=== PATIENT | female | born 1935 | race Caucasian/White ===

== ENCOUNTER → 2017-12-13 | Outpatient (CLI) | payer MEDICARE, BC ==
[~2017-12-13] MED LIST: ASPIR 8181 MG PO; ASPIRIN E.C. 8181 MG PO; CALCIUM 600/VIT1 CAP PO; CALCIUM CARBONA1 TA8 PO; CALCIUM CITRAT200 MG PO; CENTRUM SILVER1 TA1 PO; CITRACAL PLUS1 TAB PO; CO Q-1050 MG PO; COUMADIN 3MG3 MG/TAB PO; COUMADIN 5MG5 MG/TAB PO; COUMADIN 6MG6 MG/TAB PO; COUMADIN4 MG PO; CRANBERRY FRUI425 MG PO; CUBICIN 500MG500 MG IV; CYMBALTA 30MG30 MG PO; CYMBALTA 60MG60 MG PO; Detrol LA; ESTRACE0.1 MG/GM VG; FENTANYL 12MCG TOP; FISH OIL CONC1000 MG PO; FISH OIL1 IU PO; GLUCOPHAGE XR500 M1 PO; GLUCOPHAGE1000 MG PO; GLUCOSAMINE CHO1 CA1 PO; HEPARIN LOCK FLU5 M1 IV; KLONOPIN 0.5MG0.5 MG PO; LASIX 20MG TABL20 MG PO; LESCOL; LEXAPRO20 MG PO; LIDODERM PATCH TP; LIPITOR 40MG TA40 MG PO; LIQUID MAGNESI400 MG PO; LOPRESSOR 225 MG/TAB PO; LOVENOX 4040 MG/0.4 SQ; LOVENOX 8080 MG/0.8 SQ; MAG-OX 400400 MG/TAB PO; MULTI VITAMINS1 TAB PO; MVI; NEURONTIN100 MG/CAP PO; NITROSTAT0.4 MG/TAB SL; NORCO 325 MG-7.1 TAB PO; NOVLOG SQ; NS INT FLUSH 1010 ML IV; ONE DAILY1 TA1 PO; OSTEO BI-FLEX; OXECTA5 MG PO; PLAVIX 75MG TAB75 MG PO; PREDINSONE; PREDNISONE 5MG5 MG PO; PREDNISONE1 MG PO; PREDNISONE2.5 MG PO; PRILOSEC 20MG20 MG PO; QUESTRAN4 GM/9 GM PO; REMERON 15M15 MG/TA1 PO; REMERON SOLTAB15 MG PO; RITE AID KRILL500 MG PO; ROXICODONE 55 MG/TAB PO; SENNA8.6 MG PO; SENOKOT S 50 MG1 TAB PO; SUPER B COMPLEX1 TA2 PO; SUPER EPA 1201200 MG PO; THERAGRAN-M1 TA1 PO; TIGECYCLINE 50 MG IV; TRAMADOL50 MG PO; TYLENOL 325MG325 MG PO; TYLENOL 500MG500 MG PO; TYLENOL EXTRA500 M1 PO; URECHOLINE PO; VITAMIN B COMPL1 SGL PO; VITAMIN C BUFF500 MG PO; VITAMIN C500 MG PO; VITAMIN D 1001000 IU PO; VITAMIN D 400400 IU PO; WARFARIN; XALATAN EYE DROPS OU; XARELTO20 MG PO; ZESTRIL 5MG5 MG PO; ZOFRAN ODT4 MG PO; [UNRECOGNIZED DRUG - OTHER]
== END ==
LOC: MHCPAIN 14:00
DX: G89.29 Other chronic pain (principal); M47.817 Spondylosis without myelopathy or radiculopathy, lumbosacral region; M54.16 Radiculopathy, lumbar region; M53.3 Sacrococcygeal disorders, not elsewhere classified; M96.1 Postlaminectomy syndrome, not elsewhere classified
CPT/HCPCS: G0463

== ENCOUNTER → 2017-12-30 | Outpatient (CLI) | payer MEDICARE, BC | LOC: MHCPAIN 12:52 | DX: M47.817 Spondylosis without myelopathy or radiculopathy, lumbosacral region (principal); M96.1 Postlaminectomy syndrome, not elsewhere classified; M12.88 Other specific arthropathies, not elsewhere classified, other specified site ==

== ENCOUNTER → 2018-01-05 | Outpatient (CLI) | payer MEDICARE, BC | LOC: MHCPAIN 14:47 | DX: G89.29 Other chronic pain (principal); M47.817 Spondylosis without myelopathy or radiculopathy, lumbosacral region; M54.16 Radiculopathy, lumbar region; M53.3 Sacrococcygeal disorders, not elsewhere classified; M96.1 Postlaminectomy syndrome, not elsewhere classified | CPT/HCPCS: G0463 ==

== ENCOUNTER → 2018-01-20 | Outpatient (CLI) | payer MEDICARE, BC | LOC: MHCPAIN 12:22 | DX: M47.817 Spondylosis without myelopathy or radiculopathy, lumbosacral region (principal); M46.96 Unspecified inflammatory spondylopathy, lumbar region ==

== ENCOUNTER → 2018-01-26 | Outpatient (CLI) | payer MEDICARE, BC | LOC: MHCPAIN 12:38 | DX: G89.29 Other chronic pain (principal); M47.817 Spondylosis without myelopathy or radiculopathy, lumbosacral region; M54.16 Radiculopathy, lumbar region; M53.3 Sacrococcygeal disorders, not elsewhere classified; M96.1 Postlaminectomy syndrome, not elsewhere classified | CPT/HCPCS: G0463 ==

== ENCOUNTER → 2018-02-24 | Outpatient (CLI) | payer MEDICARE, BC | LOC: MHCPAIN 14:54 | DX: M47.817 Spondylosis without myelopathy or radiculopathy, lumbosacral region (principal) | CPT/HCPCS: J2250; J3010 ==

== ENCOUNTER → 2018-04-26 | Outpatient (CLI) | payer MEDICARE, BC | LOC: MHCPAIN 13:28 | DX: G89.29 Other chronic pain (principal); M47.817 Spondylosis without myelopathy or radiculopathy, lumbosacral region; M54.16 Radiculopathy, lumbar region; M53.3 Sacrococcygeal disorders, not elsewhere classified; M96.1 Postlaminectomy syndrome, not elsewhere classified | CPT/HCPCS: G0463 ==

== ENCOUNTER → 2018-06-08 | Outpatient (CLI) | payer MEDICARE, BC | LOC: MHCPAIN 13:34 | DX: G89.29 Other chronic pain (principal); M47.817 Spondylosis without myelopathy or radiculopathy, lumbosacral region; M54.16 Radiculopathy, lumbar region; M53.3 Sacrococcygeal disorders, not elsewhere classified; M96.1 Postlaminectomy syndrome, not elsewhere classified | CPT/HCPCS: G0463 ==

== ENCOUNTER 2018-06-17 21:42 | Inpatient (IN) | payer MEDICARE, BC ==
[~2018-06-17] VITALS: Ht 165.1 cm; Wt 78.1 kg
[2018-06-17 22:47] LABS: BASO % 0.2 % (0.0-2.0); EOS % 0.1 % (0-4.0); GRAN # 15.9 (1.4-6.5); HEMOGLOBIN 11.6 g/dl (12.5-16.0); LYMPH # 1.2 (1.2-3.4); LYMPH % 6.6 % (20.0-51.0); MEAN CELL VOLUME 91 fl (80.0-100.0); MEAN CORPUSCULAR HEMOGLOBIN 28 pg (27.0-31.0); MEAN CORPUSCULAR HGB CONC 31 g/dl (33.0-37.0); MEAN PLATELET VOLUME 10.5 fl (7.4-10.4); MONO # 0.8 (0.1-0.6); MONO % 4.4 % (1.7-9.3); PLATELET COUNT 149 K/mm3 (130-400); RED BLOOD COUNT 4.09 M/mm3 (4.10-5.30); REDCELL DISTRIBUTION WIDTH-CV 14.6 % (11.5-14.5)
[2018-06-17 22:55] LABS: INR 2.9 (0.8-3.0); PROTHROMBIN TIME 32.5 SECONDS (9.7-12.8)
[2018-06-17 23:00] LABS: ALBUMIN 3.6 gm/dL (3.5-5.0); BILIRUBIN,TOTAL 0.4 mg/dL (0.0-1.0); CALCIUM 8.9 mg/dL (8.4-10.2); CREATININE, serum 1.85 mg/dL (0.52-1.25); POTASSIUM 4.3 mmol/L (3.4-5.0); TOTAL PROTEIN 6.6 gm/dL (6.4-8.2)
[2018-06-17 23:13] LABS: ARTERIAL BLD GAS O2 SATURATION 92.9 % (92-100); ARTERIAL BLD GAS TCO2 CT 25.1; ARTERIAL BLOOD GAS BASE EXCESS -0.8 (-2-2); ARTERIAL BLOOD GAS HCO3 23.9 meq/L (22-26); ARTERIAL BLOOD GAS PCO2 39.7 mmHg (35-45); ARTERIAL BLOOD GAS PO2 65.1 mmHg (80-100)
[2018-06-17 23:50] LABS: COLLECTION METHOD CLEAN CATCH
[2018-06-17 23:56] LABS: PH 6 (5-8); SQUAMOUS EPITHELIAL 0-2 /hpf; URINE APPEARANCE Clear; URINE BACTERIA None Seen /hpf; URINE BILIRUBIN Negative (NEGATIVE); URINE BLOOD Negative (NEGATIVE); URINE COLOR Yellow; URINE GLUCOSE Negative (NEGATIVE); URINE KETONE Negative (NEGATIVE); URINE LEUKOCYTE ESTERASE 1+ (NEGATIVE); URINE NITRATE Negative (NEGATIVE); URINE PROTEIN(semi-quant) Negative (NEGATIVE); URINE RBC 0-2 /hpf; URINE UROBILINOGEN Negative (NEGATIVE)
[2018-06-18] VITALS (8 sets, daily range): BP systolic 95–113; BP diastolic 31–48; PULSE 54–69; TEMP 97.7–98.5
[2018-06-18] MEDS ORDERED: TIMOPTIC 0.25%-5 OP (01:40)
[2018-06-18] MEDS ORDERED: MAG-OX 400400 MG/TAB PO (01:40)
[2018-06-18 06:20] LABS: BASO % 0.2 % (0.0-2.0); EOS # 0.1 (0.0-0.7); EOS % 0.3 % (0-4.0); GRAN # 12.2 (1.4-6.5); GRAN % 81.1 % (42.2-75.2); LYMPH # 2.1 (1.2-3.4); LYMPH % 13.7 % (20.0-51.0); MEAN CELL VOLUME 92 fl (80.0-100.0); MEAN CORPUSCULAR HGB CONC 31 g/dl (33.0-37.0); MEAN PLATELET VOLUME 10.6 fl (7.4-10.4); MONO # 0.6 (0.1-0.6); MONO % 4.2 % (1.7-9.3); PLATELET COUNT 138 K/mm3 (130-400); RED BLOOD COUNT 3.45 M/mm3 (4.10-5.30); REDCELL DISTRIBUTION WIDTH-CV 14.9 % (11.5-14.5)
[2018-06-18 06:23] LABS: INR 2.8 (0.8-3.0); PROTHROMBIN TIME 31.3 SECONDS (9.7-12.8)
[2018-06-18 06:34] LABS: CREATININE, serum 1.84 mg/dL (0.52-1.25); POTASSIUM 4.1 mmol/L (3.4-5.0)
[2018-06-18 06:41] LABS: HEMATOCRIT 31.7 % (37.0-47.0); HEMOGLOBIN 9.8 g/dl (12.5-16.0); MEAN CORPUSCULAR HEMOGLOBIN 28 pg (27.0-31.0)
[2018-06-18] MEDS ORDERED: CEPHALEXIN250 M1 PO (14:57)
[2018-06-19] VITALS (7 sets, daily range): BP systolic 101–149; BP diastolic 36–47; PULSE 60–70; TEMP 98.1–99.3
[2018-06-19 06:16] LABS: BASO % 0.3 % (0.0-2.0); EOS # 0.2 (0.0-0.7); EOS % 2.2 % (0-4.0); GRAN # 6.1 (1.4-6.5); GRAN % 78.4 % (42.2-75.2); LYMPH # 1.2 (1.2-3.4); LYMPH % 15.1 % (20.0-51.0); MEAN CELL VOLUME 94 fl (80.0-100.0); MEAN CORPUSCULAR HGB CONC 30 g/dl (33.0-37.0); MEAN PLATELET VOLUME 10.7 fl (7.4-10.4); MONO # 0.3 (0.1-0.6); MONO % 3.7 % (1.7-9.3); PLATELET COUNT 116 K/mm3 (130-400); RED BLOOD COUNT 3.38 M/mm3 (4.10-5.30)
[2018-06-19 06:23] LABS: INR 2.4 (0.8-3.0); PROTHROMBIN TIME 27.8 SECONDS (9.7-12.8)
[2018-06-19 06:27] LABS: HEMATOCRIT 31.7 % (37.0-47.0); HEMOGLOBIN 9.5 g/dl (12.5-16.0); MEAN CORPUSCULAR HEMOGLOBIN 28 pg (27.0-31.0)
[2018-06-19 06:31] LABS: CALCIUM 7.2 mg/dL (8.4-10.2); CREATININE, serum 1.65 mg/dL (0.52-1.25)
[2018-06-20 04:37] VITALS: BP 154/57; PULSE 64; TEMP 97.7
[2018-06-20 06:23] LABS: BASO % 0.2 % (0.0-2.0); EOS # 0.2 (0.0-0.7); EOS % 3.5 % (0-4.0); GRAN # 2.6 (1.4-6.5); MEAN CELL VOLUME 92 fl (80.0-100.0); MEAN CORPUSCULAR HGB CONC 31 g/dl (33.0-37.0); MEAN PLATELET VOLUME 10.2 fl (7.4-10.4); MONO # 0.4 (0.1-0.6); MONO % 6.9 % (1.7-9.3); PLATELET COUNT 124 K/mm3 (130-400); RED BLOOD COUNT 3.46 M/mm3 (4.10-5.30); REDCELL DISTRIBUTION WIDTH-CV 14.9 % (11.5-14.5)
[2018-06-20 06:27] LABS: HEMATOCRIT 31.8 % (37.0-47.0); HEMOGLOBIN 9.8 g/dl (12.5-16.0); MEAN CORPUSCULAR HEMOGLOBIN 28 pg (27.0-31.0)
[2018-06-20 06:34] LABS: CALCIUM 7.6 mg/dL (8.4-10.2); CREATININE, serum 1.64 mg/dL (0.52-1.25); POTASSIUM 3.7 mmol/L (3.4-5.0)
[2018-06-20 06:42] LABS: INR 2.3 (0.8-3.0); PROTHROMBIN TIME 25.7 SECONDS (9.7-12.8)
[2018-06-20 08:00] VITALS: BP 132/48; PULSE 53; TEMP 98
[2018-06-20 11:02] VITALS: BP 142/50; PULSE 63; TEMP 98.3
== END 2018-06-20 14:50 | disposition home health service (06) | DRG 690 ==
LOC: COL.ER 21:42 → MEDICAL 23:08
PROVIDERS: Family Medicine; Internal Medicine; Nurse Practitioner Family
DX: N39.0 Urinary tract infection, site not specified (principal); N17.9 Acute kidney failure, unspecified; Z66 Do not resuscitate; N18.9 Chronic kidney disease, unspecified; R09.02 Hypoxemia; E11.22 Type 2 diabetes mellitus with diabetic chronic kidney disease; I25.10 Atherosclerotic heart disease of native coronary artery without angina pectoris; E78.5 Hyperlipidemia, unspecified; Z86.711 Personal history of pulmonary embolism; Z79.01 Long term (current) use of anticoagulants; Z86.718 Personal history of other venous thrombosis and embolism; D63.1 Anemia in chronic kidney disease; E11.42 Type 2 diabetes mellitus with diabetic polyneuropathy; Z87.891 Personal history of nicotine dependence; D69.6 Thrombocytopenia, unspecified
CPT/HCPCS: 99223-AI; 99232-AI; 99239; G8978-GP; G8979-GP; J0696; J7030

== ENCOUNTER 2018-07-29 00:33 | Observation (INO) | payer MEDICARE, BC ==
[2018-07-29] VITALS (7 sets, daily range): BP systolic 98–124; BP diastolic 36–57; PULSE 67–87; TEMP 98.1–98.8
[~2018-07-29] VITALS: Ht 167.6 cm; Wt 79.9 kg
[~2018-07-29 00:33] MED LIST changes: +CEPHALEXIN250 M1 PO; +MACRODANTIN25 MG/CA2 PO; +TIMOPTIC 0.25%-5 OU
[2018-07-29 03:00] LABS: COLLECTION METHOD CATHETER
[2018-07-29 03:09] LABS: BASO # 0.1 (0.0-0.2); BASO % 0.3 % (0.0-2.0); EOS # 0.1 (0.0-0.7); EOS % 0.4 % (0-4.0); GRAN # 17.3 (1.4-6.5); GRAN % 85.1 % (42.2-75.2); HEMOGLOBIN 11.2 g/dl (12.5-16.0); LYMPH # 2.2 (1.2-3.4); LYMPH % 10.9 % (20.0-51.0); MEAN CELL VOLUME 88 fl (80.0-100.0); MEAN CORPUSCULAR HEMOGLOBIN 28 pg (27.0-31.0); MEAN CORPUSCULAR HGB CONC 32 g/dl (33.0-37.0); MEAN PLATELET VOLUME 9.7 fl (7.4-10.4); MONO # 0.6 (0.1-0.6); MONO % 2.9 % (1.7-9.3); PLATELET COUNT 245 K/mm3 (130-400); RED BLOOD COUNT 3.99 M/mm3 (4.10-5.30); REDCELL DISTRIBUTION WIDTH-CV 14.5 % (11.5-14.5)
[2018-07-29 03:13] LABS: BUDDING YEAST Present /hpf; PH 7 (5-8); SQUAMOUS EPITHELIAL 0-2 /hpf; URINE APPEARANCE Cloudy; URINE BACTERIA Rare /hpf; URINE BILIRUBIN Negative (NEGATIVE); URINE BLOOD Negative (NEGATIVE); URINE COLOR Yellow; URINE GLUCOSE Negative (NEGATIVE); URINE KETONE Negative (NEGATIVE); URINE LEUKOCYTE ESTERASE 3+ (NEGATIVE); URINE NITRATE Negative (NEGATIVE); URINE PROTEIN(semi-quant) Negative (NEGATIVE); URINE UROBILINOGEN Negative (NEGATIVE)
[2018-07-29 03:20] LABS: ALBUMIN 3.8 gm/dL (3.5-5.0); BILIRUBIN,TOTAL 0.7 mg/dL (0.0-1.0); CALCIUM 10.4 mg/dL (8.4-10.2); CREATININE, serum 1.81 mg/dL (0.52-1.25); POTASSIUM 4.2 mmol/L (3.4-5.0); TOTAL PROTEIN 6.8 gm/dL (6.4-8.2)
[2018-07-29 03:31] LABS: INR 3.5 (0.8-3.0); PROTHROMBIN TIME 39.6 SECONDS (9.7-12.8)
[2018-07-30] VITALS (7 sets, daily range): BP systolic 105–174; BP diastolic 41–53; PULSE 59–73; TEMP 97.4–98
[2018-07-30 07:41] LABS: BASO % 0.3 % (0.0-2.0); EOS # 0.4 (0.0-0.7); EOS % 3.7 % (0-4.0); GRAN # 6.3 (1.4-6.5); GRAN % 67.7 % (42.2-75.2); LYMPH # 2.2 (1.2-3.4); LYMPH % 23.2 % (20.0-51.0); MEAN CELL VOLUME 91 fl (80.0-100.0); MEAN CORPUSCULAR HGB CONC 31 g/dl (33.0-37.0); MEAN PLATELET VOLUME 10.3 fl (7.4-10.4); MONO # 0.5 (0.1-0.6); MONO % 4.8 % (1.7-9.3); PLATELET COUNT 188 K/mm3 (130-400); RED BLOOD COUNT 3.24 M/mm3 (4.10-5.30); REDCELL DISTRIBUTION WIDTH-CV 14.9 % (11.5-14.5)
[2018-07-30 07:48] LABS: CALCIUM 8.9 mg/dL (8.4-10.2); CREATININE, serum 1.63 mg/dL (0.52-1.25); POTASSIUM 3.7 mmol/L (3.4-5.0)
[2018-07-30 07:50] LABS: HEMATOCRIT 29.5 % (37.0-47.0); HEMOGLOBIN 9.1 g/dl (12.5-16.0); MEAN CORPUSCULAR HEMOGLOBIN 28 pg (27.0-31.0)
[2018-07-30 07:52] LABS: INR 3.4 (0.8-3.0); PROTHROMBIN TIME 38.3 SECONDS (9.7-12.8)
[2018-07-31 03:42] VITALS: BP 117/64; PULSE 70
[2018-07-31 08:06] VITALS: BP 136/47; PULSE 63; TEMP 97.8
[2018-07-31 08:16] LABS: BASO % 0.5 % (0.0-2.0); EOS # 0.4 (0.0-0.7); EOS % 5.2 % (0-4.0); GRAN # 4.9 (1.4-6.5); GRAN % 61.6 % (42.2-75.2); LYMPH # 2.2 (1.2-3.4); LYMPH % 27.1 % (20.0-51.0); MEAN CELL VOLUME 90 fl (80.0-100.0); MEAN CORPUSCULAR HGB CONC 31 g/dl (33.0-37.0); MEAN PLATELET VOLUME 10.4 fl (7.4-10.4); MONO # 0.4 (0.1-0.6); MONO % 5.3 % (1.7-9.3); PLATELET COUNT 209 K/mm3 (130-400); RED BLOOD COUNT 3.45 M/mm3 (4.10-5.30); REDCELL DISTRIBUTION WIDTH-CV 14.9 % (11.5-14.5)
[2018-07-31 08:17] LABS: HEMOGLOBIN 9.7 g/dl (12.5-16.0); MEAN CORPUSCULAR HEMOGLOBIN 28 pg (27.0-31.0)
[2018-07-31 08:24] LABS: CALCIUM 9.2 mg/dL (8.4-10.2); CREATININE, serum 1.58 mg/dL (0.52-1.25); POTASSIUM 4.1 mmol/L (3.4-5.0)
[2018-07-31 11:12] VITALS: BP 138/38; PULSE 59; TEMP 98
[2018-07-31] MEDS ORDERED: TESSALON P100 MG/CAP PO (12:30)
[2018-07-31] MEDS ORDERED: PROTONIX 40MG T40 MG PO (15:21)
[2018-07-31] MEDS ORDERED: ALBUTEROL0.83 MG/ML IH ×2 (15:33→15:34)
== END 2018-07-31 14:15 ==
LOC: COL.ER 00:33 → MEDICAL 03:31
PROVIDERS: Emergency Medicine; Hospitalist; Nurse Practitioner Family
DX: R53.1 Weakness (principal); R53.81 Other malaise; W18.39XA Other fall on same level, initial encounter; E78.5 Hyperlipidemia, unspecified; I25.10 Atherosclerotic heart disease of native coronary artery without angina pectoris; I25.2 Old myocardial infarction; E11.22 Type 2 diabetes mellitus with diabetic chronic kidney disease; N18.9 Chronic kidney disease, unspecified; D63.1 Anemia in chronic kidney disease; M81.0 Age-related osteoporosis without current pathological fracture; E11.40 Type 2 diabetes mellitus with diabetic neuropathy, unspecified; Z90.710 Acquired absence of both cervix and uterus; N39.0 Urinary tract infection, site not specified; Z90.5 Acquired absence of kidney; Z79.01 Long term (current) use of anticoagulants; Z79.82 Long term (current) use of aspirin; Z90.49 Acquired absence of other specified parts of digestive tract; Z96.651 Presence of right artificial knee joint; Z86.718 Personal history of other venous thrombosis and embolism; Z86.711 Personal history of pulmonary embolism; Z88.2 Allergy status to sulfonamides; Z88.1 Allergy status to other antibiotic agents; Z88.6 Allergy status to analgesic agent; Z88.8 Allergy status to other drugs, medicaments and biological substances; Z88.7 Allergy status to serum and vaccine
CPT/HCPCS: 99239; A4216; A9284; G0378; G8978-GP; G8979-GP; G8987-GO; G8988-GO; J0696; J1940; J7030

== ENCOUNTER 2018-07-29 18:16 | Inpatient (IN) | payer MEDICARE, BC ==
[~2018-07-29] VITALS: Ht 165.1 cm; Wt 72.5 kg
[2018-07-31] MEDS ORDERED: TESSALON P100 MG/CAP PO (12:30)
[2018-07-31] MEDS ORDERED: PROTONIX 40MG T40 MG PO (15:21)
[2018-07-31 15:28] VITALS: BP 166/60; PULSE 60; TEMP 97.4
[2018-07-31] MEDS ORDERED: ALBUTEROL0.83 MG/ML IH ×2 (15:33→15:34)
[2018-08-01 05:32] VITALS: BP 126/40; PULSE 58; TEMP 97.3
[2018-08-01 06:29] LABS: INR 1.9 (0.8-3.0)
[2018-08-01 18:05] VITALS: BP 129/37; PULSE 62; TEMP 97.9
[2018-08-02 03:41] VITALS: BP 150/51; PULSE 62; TEMP 97.5
[2018-08-02 07:59] LABS: INR 1.6 (0.8-3.0); PROTHROMBIN TIME 18.3 SECONDS (9.7-12.8)
[2018-08-02 08:06] LABS: CALCIUM 9.2 mg/dL (8.4-10.2); CREATININE, serum 1.93 mg/dL (0.52-1.25); POTASSIUM 4.3 mmol/L (3.4-5.0)
[2018-08-02 16:16] VITALS: BP 119/45; PULSE 58; TEMP 98.3
[2018-08-02 16:47] VITALS: BP 113/67; PULSE 63; TEMP 98.7
[2018-08-03 03:38] VITALS: BP 139/41; PULSE 66; TEMP 98.2
[2018-08-03 08:09] LABS: INR 1.6 (0.8-3.0)
[2018-08-03] MEDS ORDERED: OMNICEF 300MG300 MG PO (12:43)
[2018-08-03] MEDS ORDERED: MACRODANTIN50 MG/CA1 PO (12:51)
[2018-08-09] MEDS ORDERED: PROBIOTIC ACID1 EAC3 PO (13:53)
[2018-08-09] MEDS ORDERED: FIRVANQ50 MG/1 ML PO ×2 (13:57)
[2018-08-09] MEDS ORDERED: VANCOCIN H125 MG/CAP PO (15:42)
== END 2018-08-03 15:45 | disposition home health service (06) | DRG 948 ==
PROVIDERS: Internal Medicine
DX: R53.81 Other malaise (principal); N39.0 Urinary tract infection, site not specified; Z66 Do not resuscitate; Z86.718 Personal history of other venous thrombosis and embolism; Z79.01 Long term (current) use of anticoagulants; Z86.711 Personal history of pulmonary embolism; Z79.4 Long term (current) use of insulin; I25.10 Atherosclerotic heart disease of native coronary artery without angina pectoris; E78.5 Hyperlipidemia, unspecified; E11.22 Type 2 diabetes mellitus with diabetic chronic kidney disease; N18.9 Chronic kidney disease, unspecified; D63.1 Anemia in chronic kidney disease; E11.42 Type 2 diabetes mellitus with diabetic polyneuropathy; Z87.891 Personal history of nicotine dependence
CPT/HCPCS: 99239; A4216; J0696

== ENCOUNTER 2018-08-19 18:34 | Inpatient (IN) | payer MEDICARE, BC ==
[~2018-08-19] VITALS: Ht 165.1 cm; Wt 78.7 kg
[~2018-08-19 18:34] MED LIST changes: +ALBUTEROL0.83 MG/ML IH; +FIRVANQ50 MG/1 ML PO; +MACRODANTIN50 MG/CA1 PO; +OMNICEF 300MG300 MG PO; +PROBIOTIC ACID1 EAC3 PO; +PROTONIX 40MG T40 MG PO; +TESSALON P100 MG/CAP PO; +VANCOCIN H125 MG/CAP PO
[2018-08-19 19:14] LABS: BASO % 0.1 % (0.0-2.0); EOS % 0.2 % (0-4.0); GRAN # 12.8 (1.4-6.5); GRAN % 91.8 % (42.2-75.2); HEMATOCRIT 36.9 % (37.0-47.0); HEMOGLOBIN 11.3 g/dl (12.5-16.0); LYMPH # 0.7 (1.2-3.4); MEAN CELL VOLUME 90 fl (80.0-100.0); MEAN CORPUSCULAR HEMOGLOBIN 28 pg (27.0-31.0); MEAN CORPUSCULAR HGB CONC 31 g/dl (33.0-37.0); MEAN PLATELET VOLUME 10.6 fl (7.4-10.4); MONO # 0.3 (0.1-0.6); MONO % 2.4 % (1.7-9.3); PLATELET COUNT 185 K/mm3 (130-400); RED BLOOD COUNT 4.11 M/mm3 (4.10-5.30); REDCELL DISTRIBUTION WIDTH-CV 14.8 % (11.5-14.5)
[2018-08-19 19:17] LABS: COLLECTION METHOD CATHETER
[2018-08-19 19:20] LABS: INR 4.2 (0.8-3.0)
[2018-08-19 19:22] LABS: PARTIAL THROMBOPLASTIN TIME 46.5 SECONDS (26.0-37.0)
[2018-08-19 19:24] LABS: ALANINE AMINOTRANSFERASE 38 U/L (9-52); ALBUMIN 3.9 gm/dL (3.5-5.0); ALKALINE PHOSPHATASE 64 U/L (50-136); ANION GAP 8 mmol/L (7-16); AST,SGOT 29 U/L (15-37); BILIRUBIN,TOTAL 0.5 mg/dL (0.0-1.0); BLOOD UREA NITROGEN 18 mg/dL (7-17); C-REACTIVE PROTEIN 0.8 mg/dL (0.0-0.9); CALCIUM 8.8 mg/dL (8.4-10.2); CARBON DIOXIDE 25 mmol/L (22-30); CHLORIDE 106 mmol/L (98-107); GLUCOSE 115 mg/dL (74-106); MAGNESIUM 1.6 mg/dL (1.6-2.3); POTASSIUM 4.9 mmol/L (3.4-5.0); SODIUM 138 mmol/L (137-145); TOTAL PROTEIN 6.8 gm/dL (6.4-8.2)
[2018-08-19 19:29] LABS: PROTHROMBIN TIME 47.4 SECONDS (9.7-12.8)
[2018-08-19 19:30] LABS: MUCOUS Present /lpf; PH 6 (5-8); SQUAMOUS EPITHELIAL 0-2 /hpf; URINE APPEARANCE Clear; URINE BACTERIA None Seen /hpf; URINE BILIRUBIN Negative (NEGATIVE); URINE BLOOD Negative (NEGATIVE); URINE COLOR Yellow; URINE GLUCOSE Negative (NEGATIVE); URINE KETONE Negative (NEGATIVE); URINE LEUKOCYTE ESTERASE Negative (NEGATIVE); URINE NITRATE Negative (NEGATIVE); URINE PROTEIN(semi-quant) 1+ (NEGATIVE); URINE UROBILINOGEN Negative (NEGATIVE)
[2018-08-19 19:33] LABS: TROPONIN-I < 0.012 ng/mL (0.000-0.034)
[2018-08-19 22:26] VITALS: BP 98/59; PULSE 69; TEMP 98
[2018-08-20] VITALS (8 sets, daily range): BP systolic 100–142; BP diastolic 31–72; PULSE 62–96; TEMP 97.7–99.7
[2018-08-20 07:04] LABS: BASO % 0.2 % (0.0-2.0); EOS # 0.2 (0.0-0.7); EOS % 0.9 % (0-4.0); GRAN # 14.7 (1.4-6.5); GRAN % 87.2 % (42.2-75.2); HEMOGLOBIN 10.8 g/dl (12.5-16.0); LYMPH # 1.4 (1.2-3.4); LYMPH % 8.3 % (20.0-51.0); MEAN CELL VOLUME 91 fl (80.0-100.0); MEAN CORPUSCULAR HEMOGLOBIN 28 pg (27.0-31.0); MEAN CORPUSCULAR HGB CONC 30 g/dl (33.0-37.0); MONO # 0.5 (0.1-0.6); MONO % 2.7 % (1.7-9.3); PLATELET COUNT 175 K/mm3 (130-400); RED BLOOD COUNT 3.93 M/mm3 (4.10-5.30)
[2018-08-20 07:08] LABS: HEMATOCRIT 35.8 % (37.0-47.0)
[2018-08-20 07:12] LABS: CALCIUM 8.4 mg/dL (8.4-10.2); CREATININE, serum 1.68 mg/dL (0.52-1.25)
[2018-08-20 07:22] LABS: INR 3.2 (0.8-3.0)
[2018-08-21] VITALS (7 sets, daily range): BP systolic 78–144; BP diastolic 41–58; PULSE 62–72; TEMP 97.5–98.1
[2018-08-21 06:34] LABS: BASO % 0.3 % (0.0-2.0); EOS # 0.5 (0.0-0.7); EOS % 7.1 % (0-4.0); GRAN # 4.4 (1.4-6.5); GRAN % 61.1 % (42.2-75.2); LYMPH # 1.9 (1.2-3.4); LYMPH % 25.6 % (20.0-51.0); MEAN CELL VOLUME 91 fl (80.0-100.0); MEAN CORPUSCULAR HGB CONC 31 g/dl (33.0-37.0); MEAN PLATELET VOLUME 10.6 fl (7.4-10.4); MONO # 0.4 (0.1-0.6); MONO % 5.8 % (1.7-9.3); PLATELET COUNT 154 K/mm3 (130-400); REDCELL DISTRIBUTION WIDTH-CV 15.1 % (11.5-14.5)
[2018-08-21 06:38] LABS: CALCIUM 8.2 mg/dL (8.4-10.2); CREATININE, serum 1.64 mg/dL (0.52-1.25); HEMATOCRIT 29.9 % (37.0-47.0); HEMOGLOBIN 9.2 g/dl (12.5-16.0); MEAN CORPUSCULAR HEMOGLOBIN 28 pg (27.0-31.0); POTASSIUM 4.3 mmol/L (3.4-5.0)
[2018-08-21 14:09] LABS: INR 2.6 (0.8-3.0); PROTHROMBIN TIME 29.1 SECONDS (9.7-12.8)
[2018-08-22 04:47] VITALS: BP 130/49; PULSE 66; TEMP 96.1
[2018-08-22 06:23] LABS: BASO % 0.5 % (0.0-2.0); EOS # 0.4 (0.0-0.7); EOS % 6.3 % (0-4.0); GRAN # 2.9 (1.4-6.5); GRAN % 46.8 % (42.2-75.2); LYMPH # 2.5 (1.2-3.4); LYMPH % 40.4 % (20.0-51.0); MEAN CELL VOLUME 91 fl (80.0-100.0); MEAN CORPUSCULAR HGB CONC 31 g/dl (33.0-37.0); MONO # 0.4 (0.1-0.6); MONO % 5.8 % (1.7-9.3); PLATELET COUNT 163 K/mm3 (130-400); RED BLOOD COUNT 3.33 M/mm3 (4.10-5.30)
[2018-08-22 06:27] LABS: INR 1.9 (0.8-3.0); PROTHROMBIN TIME 21.3 SECONDS (9.7-12.8)
[2018-08-22 06:29] LABS: HEMATOCRIT 30.2 % (37.0-47.0); HEMOGLOBIN 9.2 g/dl (12.5-16.0); MEAN CORPUSCULAR HEMOGLOBIN 28 pg (27.0-31.0)
[2018-08-22 06:31] LABS: ALBUMIN 2.7 gm/dL (3.5-5.0); BILIRUBIN,TOTAL 0.3 mg/dL (0.0-1.0); CALCIUM 8.4 mg/dL (8.4-10.2); CREATININE, serum 1.57 mg/dL (0.52-1.25); POTASSIUM 4.1 mmol/L (3.4-5.0); TOTAL PROTEIN 5.5 gm/dL (6.4-8.2)
[2018-08-22 08:21] VITALS: BP 146/61; PULSE 81; TEMP 97.6
[2018-08-22 08:32] VITALS: BP 144/41; PULSE 65; TEMP 97.8
[2018-08-22 15:16] VITALS: BP 157/50; PULSE 65; TEMP 98.3
[2018-08-22 19:00] VITALS: BP 143/57; PULSE 65; TEMP 98.4
[2018-08-23 00:54] VITALS: BP 148/48; PULSE 60; TEMP 97.6
[2018-08-23 04:14] VITALS: BP 133/47; PULSE 57; TEMP 97.2
[2018-08-23 06:06] LABS: BASO % 0.5 % (0.0-2.0); EOS # 0.3 (0.0-0.7); EOS % 5.7 % (0-4.0); GRAN # 2.3 (1.4-6.5); GRAN % 41.2 % (42.2-75.2); LYMPH # 2.6 (1.2-3.4); LYMPH % 46.7 % (20.0-51.0); MEAN CELL VOLUME 90 fl (80.0-100.0); MEAN CORPUSCULAR HGB CONC 31 g/dl (33.0-37.0); MEAN PLATELET VOLUME 10.5 fl (7.4-10.4); MONO # 0.3 (0.1-0.6); MONO % 5.7 % (1.7-9.3); PLATELET COUNT 186 K/mm3 (130-400); RED BLOOD COUNT 3.42 M/mm3 (4.10-5.30); REDCELL DISTRIBUTION WIDTH-CV 15.2 % (11.5-14.5)
[2018-08-23 06:09] LABS: INR 1.7 (0.8-3.0); PROTHROMBIN TIME 19.4 SECONDS (9.7-12.8)
[2018-08-23 06:11] LABS: HEMATOCRIT 30.7 % (37.0-47.0); HEMOGLOBIN 9.4 g/dl (12.5-16.0); MEAN CORPUSCULAR HEMOGLOBIN 27 pg (27.0-31.0)
[2018-08-23 06:13] LABS: CALCIUM 8.6 mg/dL (8.4-10.2); CREATININE, serum 1.53 mg/dL (0.52-1.25); POTASSIUM 4.2 mmol/L (3.4-5.0)
[2018-08-23 07:12] VITALS: BP 142/51; PULSE 62; TEMP 98.5
[2018-08-23 10:57] VITALS: BP 155/57; PULSE 57
== END 2018-08-23 15:45 | disposition home or self-care (01) | DRG 864 ==
LOC: COL.ER 18:34 → MEDICAL 20:53
PROVIDERS: Emergency Medicine; Hospitalist; Nurse Practitioner; Physician Assistant
DX: R50.9 Fever, unspecified (principal); R65.10 Systemic inflammatory response syndrome (SIRS) of non-infectious origin without acute organ dysfunction; N17.9 Acute kidney failure, unspecified; Z66 Do not resuscitate; Z23 Encounter for immunization; R53.81 Other malaise; N18.9 Chronic kidney disease, unspecified; Z86.718 Personal history of other venous thrombosis and embolism; Z79.01 Long term (current) use of anticoagulants; E78.5 Hyperlipidemia, unspecified; I25.10 Atherosclerotic heart disease of native coronary artery without angina pectoris; E11.22 Type 2 diabetes mellitus with diabetic chronic kidney disease; D63.1 Anemia in chronic kidney disease; K21.9 Gastro-esophageal reflux disease without esophagitis; Z90.5 Acquired absence of kidney
CPT/HCPCS: 99223-AI; 99233-AI; A4216; J0696; J2543; J3370; J7030; J7050

== ENCOUNTER → 2018-09-20 | Outpatient (CLI) | payer MEDICARE, BC | LOC: MHCPAIN 13:33 | DX: G89.29 Other chronic pain (principal); M47.817 Spondylosis without myelopathy or radiculopathy, lumbosacral region; M54.16 Radiculopathy, lumbar region; M53.3 Sacrococcygeal disorders, not elsewhere classified; M96.1 Postlaminectomy syndrome, not elsewhere classified | CPT/HCPCS: G0463 ==

== ENCOUNTER 2021-01-14 10:25 | Day surgery (SDC) | payer MEDICARE, BC ==
[2008-08-30 06:24] VITALS: BP 145/71
[~2021-01-14] VITALS: Ht 167.6 cm; Wt 70.6 kg
[~2021-01-14 10:25] MED LIST changes: -VITAMIN D 1001000 IU PO; +VITAMIND3 5000 PO
[2021-01-14] MEDS ORDERED: MELATONIN5 M1 SL (10:51)
[2021-01-14] MEDS ORDERED: COUMADIN 1MG1 MG/TAB PO (10:51)
[2021-01-14] MEDS ORDERED: LOVENOX 8080 MG/0.8 SQ (10:52)
[2021-01-14] MEDS ORDERED: VESICARE10 MG PO (10:53)
[2021-01-14] MEDS ORDERED: DESYREL 50MG50 MG PO (10:53)
[2021-01-14 10:56] VITALS: BP 124/50; PULSE 63; TEMP 97.7
[2021-01-14 12:25] VITALS: BP 151/42; PULSE 61; TEMP 97.9
--- NOTE | 2021-01-14 12:25 | NUR ---
The patient arrived back to [facility] from the recovery room at this time. The patient appears alert and oriented and denies any pain or nausea at this time. Post operative vital signs were started at this time. The patient agrees to try some hot tea at this time. Will continue to monitor the patient.
[2021-01-14 12:40] VITALS: BP 130/42; PULSE 63
--- NOTE | 2021-01-14 12:40 | NUR ---
The patient appears to be tolerating the tea well and was given some wheat toast to try at this time. Vital signs appear stable. Call light remains within reach. Will continue to monitor the patient.
[2021-01-14 12:55] VITALS: BP 150/51; PULSE 62
--- NOTE | 2021-01-14 12:55 | NUR ---
The patient appears to be tolerating the toast well. Vital signs appear stable. Will continue to monitor the patient.
[2021-01-14 13:10] VITALS: BP 142/52; PULSE 69
--- NOTE | 2021-01-14 13:10 | NUR ---
The patient ambulated to the bathroom with the stand by assistance of one nurse and appeared to tolerate the activity well. Vital signs appear stable. The patient voided without difficulty. Some blood was present on the toilet paper with wiping.
--- NOTE | 2021-01-14 13:25 | NUR ---
The nurse assisted the patient to get dressed at this time. She appeared to tolerlate the activity well. The patient's IV to her left wrist was removed and a pressure dressing was applied to the site. Discharge instructions were reviewed with the patient at this time. She verbalized understanding and has no questions for the nurse at this time.
--- NOTE | 2021-01-14 13:40 | NUR ---
The patient was escorted out via wheelchair to a private vehicle by SHRUTHI Geronimo. The patient's belongings and discharge paperwork were sent with her. The patien's daughter is present to drive her home.
[2021-01-14 14:47] VITALS: BP 1515/42; PULSE 61; TEMP 98.6
== END 2021-01-14 13:40 | disposition home or self-care (01) ==
LOC: SDCO 10:25
DX: N36.42 Intrinsic sphincter deficiency (ISD) (principal); I12.9 Hypertensive chronic kidney disease with stage 1 through stage 4 chronic kidney disease, or unspecified chronic kidney disease; I25.10 Atherosclerotic heart disease of native coronary artery without angina pectoris; I25.2 Old myocardial infarction; E11.22 Type 2 diabetes mellitus with diabetic chronic kidney disease; N18.9 Chronic kidney disease, unspecified; E78.5 Hyperlipidemia, unspecified; G47.33 Obstructive sleep apnea (adult) (pediatric); K21.9 Gastro-esophageal reflux disease without esophagitis; J45.909 Unspecified asthma, uncomplicated; G89.29 Other chronic pain; D64.9 Anemia, unspecified; M35.3 Polymyalgia rheumatica; F32.9 Major depressive disorder, single episode, unspecified; Z90.5 Acquired absence of kidney; Z79.01 Long term (current) use of anticoagulants; Z79.82 Long term (current) use of aspirin; Z79.899 Other long term (current) drug therapy; Z88.2 Allergy status to sulfonamides; Z88.8 Allergy status to other drugs, medicaments and biological substances; Z88.5 Allergy status to narcotic agent; Z88.1 Allergy status to other antibiotic agents; Z99.89 Dependence on other enabling machines and devices; Z87.891 Personal history of nicotine dependence; Z98.890 Other specified postprocedural states
CPT/HCPCS: J0690; J1100; J2405; J2704; J3010; J7030; L8606

== ENCOUNTER 2021-12-22 08:40 | Outpatient (CLI) | payer MEDICARE, BC ==
[2008-08-30 06:24] VITALS: BP 145/71
[~2021-12-22] VITALS: Ht 165.1 cm; Wt 73.3 kg
[2021-12-22] VITALS (9 sets, daily range): BP systolic 138–162; BP diastolic 57–73; PULSE 57–69; TEMP 97.8
[~2021-12-22 08:40] MED LIST changes: +CLARITIN 1010 MG/TAB PO; +COUMADIN 1MG1 MG/TAB PO; +DESYREL 50MG50 MG PO; +GEMTESA75 MG PO; +HORIZANT300 MG PO; +HYGROTON 2525 MG/TAB PO; +MELATONIN5 M1 SL; +PROBIOTIC BLEN1 EACH PO; +VESICARE10 MG PO
[2021-12-22 09:58] LABS: INR 1.3 (0.8-3.0); PROTHROMBIN TIME 14.6 SECONDS (9.7-12.8)
--- NOTE | 2021-12-22 13:20 | NUR ---
DC instructions reviewed with pt, she expressed understanding. Bandaid over puncture site remains clean, dry and intact. Gait is unsteady, requires assistance x1 to transfer from bed to wheelchair. She states this is typical for her, she usually uses a walker. She does state legs feel slightly weak due to laying in bed for extended time post procedure. She is assisted to daughter's car by wheelchair.
[2021-12-23] MEDS ORDERED: MEDROL 4MG DOSPA4 MG PO (16:14)
== END 2021-12-22 13:20 | disposition home or self-care (01) ==
LOC: COL.RAD 08:40
PROVIDERS: Radiology Diagnostic Radiology
DX: M48.02 Spinal stenosis, cervical region (principal); M25.78 Osteophyte, vertebrae; M50.30 Other cervical disc degeneration, unspecified cervical region
CPT/HCPCS: Q9967

== ENCOUNTER 2021-12-23 14:09 | Emergency (ER) | payer MEDICARE, BC ==
[~2021-12-23] VITALS: Ht 165.1 cm; Wt 78.6 kg
[2021-12-23 14:20] VITALS: TEMP 97.8
--- NOTE | 2021-12-23 15:37 | NUR ---
VINEET responded to consult for resources. The patient presented to the ED today for pain after having a myogram done yesterday. She lives alone. VINEET met with the patient and her son, Wilbert Goddard (ph#[phone]). The patient lives alone in [place]. Her son Wilbert and daughter, Yadira Mcdermott, also live in [place]. She reports that she is normally independent with ADLs and has a walker. She has home health services for therapy through [facility] . The patient's PCP is Dr. Maryam Galicia. The patient does not have a DPOA-HC in EMR, but she states that she does have one completed and that she designated her daughter, Yadira. The patient states that she has three children: Yadira, Wilbert, and Brad. The patient states is unsure about how things will be at home, due to her pain. Wilbert states that he still works, but that his is retired and can assist. The patient states that she would not want to have to go stay with her children. VINEET informed them how a SNF would be private pay. The patient and her son verbalized understanding. The patient states that she would not be able to afford to private pay for SNF or private duty caregivers. VINEET staffed with the ED doctor. The patient will not be admitted to the hospital. VINEET updated the patient and her son, Wilbert. The patient plans on returning back home with family support and resume home health services from [facility] . VINEET contacted and faxed orders and updates to Nallely at [facility]. Nallely states that they do not have OT at this time, but can add on the group home. They will not be able to see the patient until Wednesday though. VINEET updated the patient's son, Wilbert.
[2021-12-23] MEDS ORDERED: MEDROL 4MG DOSPA4 MG PO (16:14)
[2021-12-23 16:29] VITALS: BP 142/44; PULSE 65
== END 2021-12-23 16:29 | disposition home or self-care (01) ==
LOC: COL.ER 14:09
DX: M54.16 Radiculopathy, lumbar region (principal); Z87.39 Personal history of other diseases of the musculoskeletal system and connective tissue; Z98.890 Other specified postprocedural states; Z87.891 Personal history of nicotine dependence
CPT/HCPCS: J1885

== ENCOUNTER 2021-12-30 16:45 | Inpatient (IN) | payer MEDICARE, BC ==
[2008-08-30 06:24] VITALS: BP 145/71
[~2021-12-30] VITALS: Ht 165.1 cm; Wt 80.0 kg
[~2021-12-30 16:45] MED LIST changes: +MEDROL 4MG DOSPA4 MG PO
--- NOTE | 2021-12-30 17:17 | NUR ---
PT ON THE MEDICAL FLOOR AT THIS TIME. DAUGHTER AT THE BEDSIDE. THE PATIENT IS A DIRECT ADMIT FROM HER PCP TO DR. CROSS. THE PATIENT COMPLAINS OF SIGNIFICANT PAIN. AT THIS TIME THE PATIENT HAS A 12 MCG F[place] PATCH ON THE UPPER LEFT CHEST. ON THE TRANSFER FROM WHEELCHAIR TO THE BED, THE PATIENTS LEGS BUCKLED UNDERNEATH HER. GAIT BELT WAS ON AND UTILIZED. PT IS A MODERATE 2 ASSIST. PT IS IN YELLOW GOWN WITH FALL RISK PRECAUTIONS IN PLACE.
[2021-12-30 17:40] VITALS: BP 195/54; PULSE 66; TEMP 97.7
[2021-12-30 19:34] LABS: BASO % 0.1 % (0.0-2.0); EOS # 0.1 K/mm3 (0.0-0.7); EOS % 0.5 % (0.0-4.0); GRAN % 73.5 % (42.2-75.2); HEMATOCRIT 41.1 % (37.0-47.0); HEMOGLOBIN 13.5 g/dl (12.5-16.0); LYMPH % 20.5 % (20.0-51.0); MEAN CELL VOLUME 91 fl (80.0-100.0); MEAN CORPUSCULAR HEMOGLOBIN 30 pg (27-31); MEAN CORPUSCULAR HGB CONC 33 g/dl (33.0-37.0); MEAN PLATELET VOLUME 9.5 fl (7.4-10.4); MONO # 0.4 K/mm3 (0.1-0.6); MONO % 4.6 % (1.7-9.3); PLATELET COUNT 221 K/mm3 (130-400); REDCELL DISTRIBUTION WIDTH-CV 13.9 % (11.5-14.5)
[2021-12-30 19:35] LABS: INR 3.5 (0.8-3.0); PROTHROMBIN TIME 39.1 SECONDS (9.7-12.8)
[2021-12-30] MEDS ORDERED: PROAIR HFA0.09 MG/AC IH (19:41)
[2021-12-30 19:43] VITALS: BP 167/54; PULSE 68; TEMP 98.6
[2021-12-30] MEDS ORDERED: ESTRACE0.1 MG/GM VG (19:44)
[2021-12-30] MEDS ORDERED: ATROVENTNS0.03% NS (19:45)
[2021-12-30 19:46] LABS: ALBUMIN 3.7 gm/dL (3.4-4.8); BILIRUBIN,TOTAL 0.4 mg/dL (0.2-1.2); CALCIUM 9.5 mg/dL (8.4-10.2); CREATININE, serum 2.16 mg/dL (0.57-1.11); MAGNESIUM 2.3 mg/dL (1.6-2.6); POTASSIUM 4.2 mmol/L (3.5-4.5); TOTAL PROTEIN 6.7 gm/dL (6.2-8.1)
[2021-12-30] MEDS ORDERED: COUMADIN4 MG PO ×2 (19:46→19:48)
[2021-12-31 00:16] VITALS: BP 144/46; PULSE 74; TEMP 99.4
[2021-12-31 05:10] VITALS: BP 145/60; PULSE 72; TEMP 98.1
--- NOTE | 2021-12-31 06:08 | NUR ---
ASSESSMENT COMPLETE FOR THIS SHIFT. PT UNCOMFORTABLE IN BED. PT COMPLAINED OF BACK PAIN. PT GIVEN MORPHINE FOR PAIN AND TYLENOL FOR HER LOW GRADE FEVER ( PT DIDN'T FEEL TYLENOL WOULD BE EFFECTIVE FOR HER BACK PAIN). PT DIDN'T FEEL THE MORPHINE WAS EFFECTIVE EITHER. HOWEVER, WHEN I WENT IN TO SEE IF PT WANTED TO TRY MORE MORPHINE AT THE TWO HOUR GABE, PT WAS FAST ASLEEP. PT DENIED PALPITATIONS, SOB, N,V,D OR DIZZINESS. PT EXPRESSED NO OTHER NEEDS AT THIS TIME. CALL LIGHT WITHIN REACH.
[2021-12-31 07:08] LABS: INR 2.8 (0.8-3.0)
[2021-12-31 07:12] LABS: CALCIUM 8.8 mg/dL (8.4-10.2); CREATININE, serum 1.78 mg/dL (0.57-1.11); MAGNESIUM 2.1 mg/dL (1.6-2.6); POTASSIUM 4.6 mmol/L (3.5-4.5)
[2021-12-31 08:12] VITALS: BP 127/46; PULSE 69; TEMP 98.5
--- NOTE | 2021-12-31 09:00 | NUR ---
Assessment completed, alert/oriented, vital signs stable, denies pain while laying still, but gets sharp shooting pain with movement or position changes, heart RRR/distal pulses are palpable, lungs CTA/ no resp.difficutly noted, she is sitting up eating at this time, denies other needs, will continue to monitor, call light in reach
--- NOTE | 2021-12-31 09:31 | NUR ---
Social Work student met with patient to discuss discharge planning. Patient lives in [place] in the Independent Living at [facility]. Patient sees Dr. Maryam Galicia for primary care, and receives her medications from [facility] in [facility] with no cost difficulty. Patient states that she does have a CPAP, but she states, "I stopped using it." She followed up and said that the "hose was pulling." Patient states that she is on 3.5L of oxygen at night and she receives her oxygen from [facility]. Patient states that she is normally independent with her ADL's. Patient states that she would be comfortable going home if "we [medical staff] could get rid of this pain." Patient also states that she goes by the name, "Joleen." *Discharge plan: pend PT/OT rec*
[2021-12-31] MEDS ORDERED: XALATAN EYE DROPS OD (09:35)
[2021-12-31 12:24] VITALS: BP 130/46; PULSE 67; TEMP 98.6
[2021-12-31 16:06] VITALS: BP 147/55; PULSE 71; TEMP 98.4
--- NOTE | 2021-12-31 18:45 | NUR ---
Patient being transferred to [facility] for neuro Sx [place].[facility] is here to transfer, I gave 2mg MS prior to moving patient over to EMS cart, 20G IV left in place to left wrist, she notified her family of transfer, I attempted to call report to recieving nursing staff/ left a call back number and updated our charge so she can give report
== END 2021-12-31 19:35 | disposition short-term general hospital (02) | DRG 92 ==
LOC: MEDICAL 16:45
PROVIDERS: ADMIT Internal Medicine
DX: G95.9 Disease of spinal cord, unspecified (principal); N17.9 Acute kidney failure, unspecified; E78.5 Hyperlipidemia, unspecified; M51.36 Other intervertebral disc degeneration, lumbar region; M48.061 Spinal stenosis, lumbar region without neurogenic claudication; I25.10 Atherosclerotic heart disease of native coronary artery without angina pectoris; E11.22 Type 2 diabetes mellitus with diabetic chronic kidney disease; N18.9 Chronic kidney disease, unspecified; D63.1 Anemia in chronic kidney disease; M81.0 Age-related osteoporosis without current pathological fracture; G89.29 Other chronic pain; E11.40 Type 2 diabetes mellitus with diabetic neuropathy, unspecified; N39.3 Stress incontinence (female) (male); E87.5 Hyperkalemia; Z96.651 Presence of right artificial knee joint; I25.2 Old myocardial infarction; Z86.718 Personal history of other venous thrombosis and embolism; Z86.711 Personal history of pulmonary embolism; Z87.891 Personal history of nicotine dependence; Z90.5 Acquired absence of kidney; Z23 Encounter for immunization
CPT/HCPCS: 99223-AI; 99239; J1815; J2270; J8540

== ENCOUNTER 2022-03-30 16:34 | Emergency (ER) | payer MEDICARE, BC ==
[~2022-03-30] VITALS: Ht 165.1 cm; Wt 75.9 kg
[~2022-03-30 16:34] MED LIST changes: +ATROVENTNS0.03% NS; +PROAIR HFA0.09 MG/AC IH; +XALATAN EYE DROPS OD
[2022-03-30 17:07] VITALS: BP 144/68; PULSE 79; TEMP 99.7
== END 2022-03-30 19:15 | disposition left against medical advice (07) ==
LOC: COL.ER 16:34
DX: M54.2 Cervicalgia (principal); M79.604 Pain in right leg; M79.605 Pain in left leg; W19.XXXA Unspecified fall, initial encounter; Y92.009 Unspecified place in unspecified non-institutional (private) residence as the place of occurrence of the external cause